=== PATIENT | female | born 1965 | race Caucasian/White ===

== ENCOUNTER 2017-02-19 15:04 | Inpatient (IN) ==
[2017-02-19 15:53] LABS: MANUAL DIFF NEEDED? NO
[2017-02-19 15:56] LABS: BASO% 0.4 % (0.0-0.8); EOS# 0.23 X1000 (0.0-0.7); HEMOGLOBIN 14.2 g/dL (12.0-16.0); LYMPH# 1.81 X1000 (1.2-3.4); LYMPH% 23.8 % (20.5-51.1); MCH 30.5 PG (27-31); MCHC 35.5 g/dL (33-37); MONO# 0.56 X1000 (0.11-0.59); MONO% 7.3 % (1.7-9.3); MPV 10.1 FL (7.4-10.4); NEUT% 65.5 % (42.2-75.2); PLT 240 X1000 (130-400); RBC 4.65 XMIL (4.2-5.4)
--- NOTE | 2017-02-19 16:02 | Diag Imaging Result Doc PS360 ---
EXAM: CHEST-2 VIEWS INDICATION: CP TECHNIQUE: 2 views COMPARISON: 11/26/2016 FINDINGS: The lungs are grossly clear. There is no discrete pleural fluid collection or pneumothorax. The cardiomediastinal silhouette and central vasculature are grossly unremarkable. IMPRESSION: No evidence of acute pathology by plain radiograph. Electronically signed by Jose Samuel 02/19/2017 3:59 PM
[2017-02-19 16:05] LABS: INR 1.01; PROTIME 10.6 Seconds (9.2-11.7); PTT 25.9 Seconds (22.0-36.0)
[2017-02-19 16:07] LABS: AGAP 14; ALBUMIN 4.4 g/dL (3.5-5.0); ALKALINE PHOSPHATASE 75 U/L (32-104); BUN 8 mg/dL (8-22); CALCIUM 9.1 mg/dL (8.8-10.2); CHLORIDE 103 mmol/L (98-107); CK PROFILE 150 U/L (24-173); COSMO 281; GOT 17 U/L (10-30); GPT 24 U/L (10-36); POTASSIUM 3.7 mmol/L (3.5-5.1); SODIUM 141 mmol/L (136-145); TCO2 24 mmol/L (25-35); TOTAL BILIRUBIN 0.52 mg/dL (0.20-1.00); TOTAL PROTEIN 7.3 g/dL (6.3-8.3)
--- NOTE | 2017-02-19 18:47 | PROVIDER DOCUMENTATION ---
HPI-Chest Pain - General Chief Complaint: Chest Pain Stated Complaint: CP/ELEVATED BP Time Seen by Provider: 02/19/17 18:39 Source: patient Allergies/Adverse Reactions: Patient Allergies Allergy/AdvReac Type Severity Reaction Status Date / Time No Known Allergies Allergy Verified 11/26/16 20:11 Home Medications: Home Medication List Medication Instructions Recorded Confirmed Last Taken Type Metformin E.r. [Glucophage Xr] 500 mg PO HS 03/23/16 11/26/16 11/25/16 22:30 History Citalopram [Celexa] 20 mg PO HS 07/14/16 11/26/16 11/25/16 22:30 History Diphenoxylate/Atropine [Lomotil] 1 each PO 4XDAY PRN PRN #12 tablet 08/04/1611/26/16 14:00 Rx Albuterol [Albuterol Neb] 2.5 mg INH [id number] 11/26/16 11/26/16 11/26/16 14:00 History Budesonide/Formoterol Fumarate 2 puff INH BID 11/26/16 11/26/16 11/26/16 14:00 History [Symbicort 160-4.5 Mcg Inhaler] Cyclobenzaprine [Flexeril] 10 mg PO TID 11/26/16 11/26/16 11/26/16 14:00 History Naproxen 500 mg PO BID PRN PRN #20 tablet 11/26/16 Unknown Rx - History of Present Illness-CP Nature of Presenting Problem: 51 y/o WF presents to the ED with 1 day hx of general weakness, CP, RUE tingling. Pt states that she took nitro x 2 and CP resolved. Also states that she had a SIGALA prior to the CP starting and that has resolved. States hx of heart blockage, but Dr. Alaniz wanted to try her on medication prior to any surgical intervention x 2 months. Denies any other sxs at this time. Review of Systems - Adult - REVIEW OF SYSTEMS - ADULT Constitutional: reports: no symptoms reported. denies: chills, fever Eyes: reports: no symptoms reported. denies: blurred vision, double vision Ears, Nose, Mouth & Throat: reports: no symptoms reported. denies: ear pain, nose pain Cardiovascular: reports: see HPI, chest pain. denies: palpitations Respiratory: reports: no symptoms reported. denies: cough, shortness of breath Gastrointestinal: reports: no symptoms reported. denies: abdominal pain, nausea , vomiting Genitourinary: reports: no symptoms reported. denies: dysuria, frequency Musculoskeletal: reports: no symptoms reported. denies: joint pain, joint swelling Integumentary: reports: no symptoms reported. denies: nail changes, rash Neurological: reports: see HPI, headache/migraines, numbness. denies: paresthesia Psychiatric: reports: no symptoms reported Endocrine: reports: no symptoms reported. denies: cold intolerance, heat intolerance Hematologic/Lymphatic: reports: no symptoms reported. denies: easy bruising, prolonged bleeding Allergic/Immunologic: reports: no symptoms reported All Other Systems: Reviewed and Negative Past History - Adult - PAST MEDICAL HISTORY-ADULT Review of Records: reports: Nursing Assessment Review, Medications Reviewed Major Childhood Illnesses: reports: denies history Cardiovascular: reports: CAD Respiratory: reports: asthma, COPD Gastrointestinal: reports: denies history Obstetrical/Gynecological: reports: denies history Genitourinary: reports: other (awaiting workup for abnormal uterine/cervical findings) Musculoskeletal: reports: arthritis, intervertebral disc disease Neurological: reports: denies history Psychiatric: reports: bipolar Endocrine/Immune: reports: denies history, Diabetes Other Conditions: reports: blindness - PRIOR SURGERIES/PROCEDURES Surgical/Procedure History: reports: cholecystectomy, BTL, other (artificial R eye) - IMMUNIZATION STATUS Childhood Immunizations: See Nurse Assessment Flu Vaccine: See Nurse Assessment - FAMILY HISTORY Family History: reviewed, not pertinent - SOCIAL HISTORY Smoking: denies, secondhand Living Situation: family Physical Exam-General - PHYSICAL EXAM-ADULT Initial Vital Signs Reviewed: Yes - CONSTITUTIONAL General Appearance: alert, mild distress - EYES Eyes: PERRL/EOMI (L eye), other (artificial R eye in place). negative: EOM palsy - HEAD, EARS, NOSE, MOUTH & THROAT HENMT: normocephalic/atraumatic, moist mucous membranes - NECK Neck: full range of motion, supple, normal inspection - RESPIRATORY Respiratory: lungs clear, normal breath sounds. negative: crackles, rales, rhonchi, stridor, wheezing - CARDIOVASCULAR Cardiovascular: regular rate, rhythm. negative: bradycardia, tachycardia - GASTROINTESTINAL (ABDOMEN) Abdominal Exam: normal bowel sounds, non tender, soft. negative: distended, guarding, rigid - MUSCULOSKELETAL Back Exam: normal inspection Extremity: normal gait - SKIN Integumentary: normal color, normal turgor, warm/dry - NEUROLOGIC Neurologic: negative: aphasia - PSYCHIATRIC Psych/Mental Status: normal mood/affect Progress - PLAN OF CARE/RESULTS Progress/Plan/Lab Results: Vital Signs - 8 hr 02/19/17 15:25 02/19/17 18:57 Temperature 98.5 F Pulse Rate 75 63 Respiratory Rate 20 14 Blood Pressure 127/70 117/77 O2 Sat by Pulse Oximetry 99 99 Laboratory Results - last 24 hr 02/19/17 02/19/17 02/19/17 15:34 15:34 15:34 WBC 7.62 RBC 4.65 Hgb 14.2 Hct 40.0 MCV 86.0 MCH 30.5 MCHC 35.5 RDW Std Deviation 12.8 Plt Count 240 MPV 10.1 Immature Gran % (Auto) 0.0 Neut % (Auto) 65.5 Lymph % (Auto) 23.8 Newberry % (Auto) 7.3 Eos % (Auto) 3.0 Baso % (Auto) 0.4 Immature Gran # (Auto) 0.00 Neut # (Auto) 4.99 Lymph # (Auto) 1.81 Newberry # (Auto) 0.56 Eos # (Auto) 0.23 Baso # (Auto) 0.03 PT INR PTT (Actin FS) D-Dimer 0.23 Sodium 141 Potassium 3.7 Chloride 103 Carbon Dioxide 24 L Anion Gap 14 BUN 8 Creatinine 0.8 Estimated GFR/1.73 m2 > 60 BUN/Creatinine Ratio 10 Glucose 128 H Calculated Osmolality 281 Calcium 9.1 Magnesium 2.0 Total Bilirubin 0.52 AST 17 ALT 24 Alkaline Phosphatase 75 Creatine Kinase 150 Troponin T Wva-B-Remomtukauz Pept Total Protein 7.3 Albumin 4.4 Globulin 2.9 Albumin/Globulin Ratio 1.5 02/19/17 02/19/17 02/19/17 15:34 15:34 15:34 WBC RBC Hgb Hct MCV MCH MCHC RDW Std Deviation Plt Count MPV Immature Gran % (Auto) Neut % (Auto) Lymph % (Auto) Newberry % (Auto) Eos % (Auto) Baso % (Auto) Immature Gran # (Auto) Neut # (Auto) Lymph # (Auto) [place]berry # (Auto) Eos # (Auto) Baso # (Auto) PT 10.6 INR 1.01 PTT (Actin FS) 25.9 D-Dimer Sodium Potassium Chloride Carbon Dioxide Anion Gap BUN Creatinine Estimated GFR/1.73 m2 BUN/Creatinine Ratio Glucose Calculated Osmolality Calcium Magnesium Total Bilirubin AST ALT Alkaline Phosphatase Creatine Kinase Troponin T < 0.010 Muy-S-Nqepgliqryr Pept 32 Total Protein Albumin Globulin Albumin/Globulin Ratio 02/19/17 02/19/17 19:00 19:00 WBC RBC Hgb Hct MCV MCH MCHC RDW Std Deviation Plt Count MPV Immature Gran % (Auto) Neut % (Auto) Lymph % (Auto) Newberry % (Auto) Eos % (Auto) Baso % (Auto) Immature Gran # (Auto) Neut # (Auto) Lymph # (Auto) [place]berry # (Auto) Eos # (Auto) Baso # (Auto) PT INR PTT (Actin FS) D-Dimer Sodium Potassium Chloride Carbon Dioxide Anion Gap BUN Creatinine Estimated GFR/1.73 m2 BUN/Creatinine Ratio Glucose Calculated Osmolality Calcium Magnesium Total Bilirubin AST ALT Alkaline Phosphatase Creatine Kinase 141 Troponin T < 0.010 Fow-K-Rvgvrtsdkyt Pept Total Protein Albumin Globulin Albumin/Globulin Ratio Orders Category Date Time Status Cardiac Monitoring DIRECTED Care 02/19/17 15:30 Active Saline Loc NOW Care 02/19/17 15:30 Active CHEST-2 VIEWS [RAD] Stat Exams 02/19/17 15:30 Completed CBC WITH ELECTRONIC DIFF [HEME] Stat Lab 02/19/17 15:34 Completed CK PROFILE [SP CHEM] Stat Lab 02/19/17 15:34 Completed CK PROFILE [SP CHEM] Stat Lab 02/19/17 19:00 Completed COMPREHENSIVE METABOLIC PANEL [CHEM] Stat Lab 02/19/17 15:34 Completed D-DIMER [CHEM] Stat Lab 02/19/17 15:34 Completed MAGNESIUM [CHEM] Stat Lab 02/19/17 15:34 Completed PRO B-NATRIURETIC PEPTIDE Stat Lab 02/19/17 15:34 Completed PROTIME WITH INR [COAG] Stat Lab 02/19/17 15:34 Completed PTT [COAG] Stat Lab 02/19/17 15:34 Completed TROPONIN T Stat Lab 02/19/17 15:34 Completed TROPONIN T Stat Lab 02/19/17 19:00 Completed EKG [EKG] Stat Ther 02/19/17 15:30 Ordered EKG [EKG] Stat Ther 02/19/17 18:40 Ordered Discussed pt with Dr. Pepper and he agreed with cardiology consult. Discussed admission with pt. Result Diagrams: 02/19/17 15:34 02/19/17 15:34 - XRAY 1 XRAY Study: Chest Impression: See EMR Report (No evidence of acute pathology by plain radiograph, per Dr. Samuel) - CONSULTS/PCP/HOSPITALIST Notification #1 *Consult/PCP/Hospitalist*: Dr. Anna Keller Discussed: 20:32 Reason/Comments: CP, hx of abnormal NM scan in December 2016 Consult Disposition: Admit (for observation and consult with cardiology. NPO s/ p midnight for cath. Will have Dr. Quintero consult tomorrow.) #2 Consult: Dr. Jean Pierre Keller Discussed: 20:42 Reason/Comments: CP, hx of abnormal NM scan in December 2016, admit per Dr. Castillo Consult Disposition: Admit Departure - Departure Date of Disposition Decision: 02/19/17 Time of Disposition Decision: 20:35 DIAGNOSIS: Chest pain, atypical, Radiculopathy of arm Disposition: ADMITTED INPATIENT 09 Certified Medical Emergency: Emergent Condition: Stable Referrals and Follow-Ups: YEIMY MOULTON [Primary Care Provider] - - Critical Care Note This patient required my direct & personal management of CC.: No Attestation - Physician/ AUGUST Attestation Patient care was provided by Advanced Practice Provider:: Yes Advanced Practice Provider:: Dawna Falk Advanced Practice Provider documentation review:: The Mid-level provider documentation, treatment plan and medical decision making was reviewed by the physician who agrees with all treatment and medical decision making by the P.
[2017-02-19] MEDS ORDERED: ZOFRAN IV PRN (22:25)
[2017-02-19] MEDS ORDERED: NITROGLYCERIN SL PRN (22:25)
[2017-02-19] MEDS: TYLENOL PO PRN (22:50)
--- NOTE | 2017-02-19 23:14 | HISTORY AND PHYSICAL ---
CHIEF COMPLAINT: Chest pain. PRIMARY CARE PHYSICIAN: Dr. Herbert. HISTORY OF PRESENTING ILLNESS: A 51-year-old female with a history of COPD, diabetes mellitus type 2, hypertension, had presented to the emergency department with complaint of chest pain that started earlier today. She described it as pressure-like radiating to her right arm. She states that she took some nitroglycerin and it did help relieve some of the pain. She was evaluated in the ER, she continued to have chest discomfort and due to her presenting symptoms, it was thought that she would need hospitalization for further management. At the time of my examination, she had denied any headache, fever, chills, nausea, vomiting, diarrhea, hemoptysis, melena, weight changes, but complained of chest discomfort. PAST MEDICAL HISTORY: Includes COPD, diabetes mellitus type 2, chronic back pain, hypertension. PAST SURGICAL HISTORY: Cholecystectomy, right eye prosthesis. ALLERGIES: No known drug allergies. CURRENT MEDICATIONS: Listed in MAR. SOCIAL HISTORY: She denies any history of smoking, alcohol or illicit drug use. FAMILY HISTORY: Positive for coronary disease father. REVIEW OF SYSTEMS: Twelve point review of systems is as in HPI. Other systems negative. PHYSICAL EXAMINATION: GENERAL: Cooperative, friendly female. She is resting comfortably now. VITAL SIGNS: Temperature 98.5 degrees, pulse 75, respirations 20, blood pressure 127/70, she is saturating 99% on room air. HEENT: Atraumatic, normocephalic. Extraocular movements intact. There is a right eye prosthesis. NECK: No masses. CHEST: Clear to auscultation. CARDIOVASCULAR: Regular rate and rhythm. ABDOMEN: Soft, nontender. Positive bowel sounds. EXTREMITIES: No edema. NEURO: She is awake, alert, oriented x3. : No bladder distention. SKIN: Warm. LABORATORIES AND STUDIES: Sodium 141, potassium 3.7, chloride 103, CO2 24, BUN is 8, creatinine 0.8, glucose is 128. WBC 7.62, hemoglobin 14.2, hematocrit 40.0, platelets 240,000. Troponin 0.010. ASSESSMENT: A 51-year-old female with a history of diabetes mellitus type 2, hypertension, chronic obstructive pulmonary disease, had presented to emergency department 1-day history of having chest pain. The patient apparently had a positive stress test about several months ago and was put on a trial of medications. However she will need admission for further cardiac evaluation. 1. Chest pain. 2. Diabetes mellitus type 2. 3. Hypertension. PLAN: 1. We will admit patient to medical floor with telemetry. 2. Continue with cardiac workup. Check EKG, serial cardiac enzymes. Have patient continue on aspirin. Will use nitroglycerin p.r.n. chest pain. 3. We will consult instructor physical education. 4. Monitor blood glucose and put patient on sliding scale insulin regimen. 5. We will monitor blood pressure. Resume antihypertensive agents. 6. Put patient on DVT prophylaxis with SCDs. 7. We will continue to follow and reassess. cc: Bethel Greenfield MD
--- NOTE | 2017-02-20 06:15 | EKG Report ---
Test Performed on : 02/19/2017 3:30:39 PM Test Reason : CP Blood Pressure : / mmHG Vent. Rate : 063 BPM Atrial Rate : 063 BPM P-R Int : 162 ms QRS Dur : 098 ms QT Int : 420 ms P-R-T Axes : 008 014 023 degrees QTc Int : 429 ms Normal sinus rhythm. Cannot rule out Anterior infarct , age undetermined Abnormal ECG When compared with ECG of 26-NOV-2016 22:34, No significant change was found Unconfirmed Result
[2017-02-20] MEDS: HUMULIN R SUBQ SCH ×2 (06:42→11:41)
[2017-02-20 06:58] LABS: MANUAL DIFF NEEDED? NO
[2017-02-20 07:03] LABS: BASO% 0.4 % (0.0-0.8); EOS# 0.21 X1000 (0.0-0.7); EOS% 2.7 % (0.0-10.0); HEMOGLOBIN 14.4 g/dL (12.0-16.0); IMM GRAN# 0.03 X1000 (0.0-0.04); IMM GRAN% 0.4 % (0.0-0.5); LYMPH# 2.41 X1000 (1.2-3.4); LYMPH% 30.8 % (20.5-51.1); MCH 30.6 PG (27-31); MCHC 35.1 g/dL (33-37); MONO# 0.68 X1000 (0.11-0.59); MONO% 8.7 % (1.7-9.3); PLT 223 X1000 (130-400); RBC 4.71 XMIL (4.2-5.4)
[2017-02-20 07:27] LABS: HDL 55 mg/dL (45-65); LDL 60 mg/dL; TRIGLYCERIDES 84 mg/dL (35-135); VLDL 17 mg/dL
[2017-02-20] MEDS ORDERED: ASPIRIN PO SCH (09:00)
--- NOTE | 2017-02-20 10:54 | CONSULTATION ---
DATE OF CONSULTATION: 02/20/2017 CHIEF COMPLAINT: Chest pain. HISTORY OF PRESENT ILLNESS: The patient is a pleasant 51-year-old female who is known to me. I saw her at the office last time on 12/29/2016. Since then, she had been doing relatively well up until the day prior to admission when she started having recurrent chest pain, substernal, similar to the pain that she had reported on previous admission; however, this time the pattern was recurrent, more persistent, more intense. The patient got worried and decided to come for medical evaluation to the ER. She was seen on 02/19/2017 at about 3:30 p.m. They did an EKG that showed sinus rhythm with no acute ST-T abnormalities. They have drawn several sets of cardiac enzymes, 4, and all of them are negative. ProBNP level is normal. The patient is still having some mild discomfort in the chest. PAST MEDICAL HISTORY: Positive for mild degree of coronary artery disease. Back in 2009, a heart catheterization revealed 30% stenosis of the proximal LAD. We did a followup nuclear stress test on 12/23/2016 that showed partially reversible anteroapical defect and basal septal defect focal. Because the patient was not on any appropriate medical therapy, we went ahead and got her started on Cardizem, aspirin and Pravachol. The patient had been diagnosed with diabetes mellitus. She has history of degenerative joint disease including spine/back pains. She has had some hyperlipidemia in the past. 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 SOCIAL HISTORY: She is a . She has 3 grownup children. The patient presently is not a smoker. FAMILY HISTORY: Father has had bypass. Brother and sister have had coronary bypass. REVIEW OF SYSTEMS: Other than the recurrent episode of chest pain is really noncontributory. She does have some fatigue. She has had some exertional dyspnea, occasional numbness in the hands. Some loss of appetite. She has no thyroid issues. No additional musculoskeletal problems other than low back pain. HOME MEDICATIONS: At the time of this admission included pravastatin 20 mg daily, metformin 500 at bedtime, meloxicam 7.5 daily, diltiazem HCl 180 daily, Celexa 20 mg daily, albuterol inhaler and Symbicort daily. PHYSICAL EXAMINATION: Blood pressure is 111/66, temperature 97.4, pulse 54, respirations 18. She is awake, alert and oriented, in no distress. HEENT: Unremarkable. Chest: Clear to auscultation and percussion. Heart sounds are regular and rhythmic without gallop or murmur. Abdomen: Nontender, soft. No masses. No hepatomegaly. Extremities: Good pulses. No edema. Neurologic: Moves all 4 extremities and follows commands. DIAGNOSTIC DATA: Normal white count, hemoglobin, RDW and MCV. Cholesterol is 132, LDL is 60, HDL is 55, triglycerides 84. PT, PTT and D-dimer are normal. ProBNP is normal. Sodium, potassium, BUN and creatinine all normal. IMPRESSION: 1. The patient is presenting with recurrent chest pain with a recently performed stress test that is abnormal and a history of mild coronary heart disease in the past. 2. Diabetes mellitus. 3. Chronic obstructive pulmonary disease. 4. Spine arthritis. RECOMMENDATIONS: Because of the changes in pattern and the increasing chest discomfort, I would recommend at this time to pursue diagnostic catheterization. Her presentation is unstable. We will go ahead and put her on Lovenox, and we will proceed with left heart catheterization today. The benefits, risks and complications were explained to her in detail. She understood and requested to proceed. Further advice will depend on the results of the heart catheterization. cc: Donnell Quintero MD
[2017-02-20] MEDS: CARDIZEM CD PO SCH ×2 (11:41→21:01)
[2017-02-20] MEDS: PRILOSEC PO SCH ×2 (11:41→21:00)
[2017-02-20] MEDS ORDERED: HEPARIN 1000 UNITS/NS 2,000 UNIT/1,000 ML IV.SOLN ONE (13:28)
[2017-02-20] MEDS ORDERED: VERSED ONE (13:33)
[2017-02-20] MEDS ORDERED: DEMEROL ONE (13:34)
[2017-02-20] MEDS ORDERED: CLAVE PUMP SET NO FILTER 12260 ONE (13:42)
[2017-02-20] MEDS ORDERED: NS 1,000 ML ONE (13:43)
[2017-02-20] MEDS: LOVENOX SUBQ SCH ×2 (14:42→20:59)
--- NOTE | 2017-02-20 15:06 | CARDIAC CATH REPORT ---
DATE: 02/20/2017 INDICATION: This is a 51-year-old female with recurrent chest pains, abnormal stress test in the recent past. PROCEDURES PERFORMED: 1. Left heart catheterization. 2. Selective coronary arteriography. 3. Left ventriculography. DESCRIPTION OF PROCEDURE: The patient came into the cardiac custodial laborer in the fasting state. The right groin was prepped and draped in sterile fashion and anesthetized with lidocaine 1%. A 6- Citizen [place] sheath was inserted into the right femoral artery by following the modified Seldinger technique. Thereafter using 6-[place]izen [place] left Asad 4 and right Asad 4, the left and right coronary arteries were selectively opacified in several projections. Thereafter using the right Asad catheter, the aortic valve was negotiated. Left ventricular pressure was measured. Left ventriculogram was performed in the 60 degree TERRANCE projection and 30 degree BAH projection by hand injection. At the conclusion of the procedure, the femoral artery was opacified; however, the stick had been made just at the bifurcation of the main femoral vessel, and therefore Angio-Seal device was not deployed. The patient tolerated the procedure well. Hemostasis was accomplished by hand compression. SUMMARY OF HEMODYNAMIC FINDINGS: Central aortic pressure is 121/69. Left ventricular pressure is 108/7, post LV gram 99/7. Final central aortic pressure is 111/71. Nitroglycerin was given during the procedure to maximize the caliber of the coronary arteries. SUMMARY OF ANGIOGRAPHIC FINDINGS: 1. Left main coronary artery: This vessel is short and is angiographically normal. It divides into the LAD and circumflex. 2. Left anterior descending coronary artery: The vessel has normal proximal caliber. It shows the presence of a 20% to 30% proximally just at the point of origin of the first diagonal branch. The LAD thereafter tapers down to a small caliber vessel as it reaches the apex of the left ventricle. No critical lesions are noted along the course of the LAD. 3. Circumflex: The circumflex is a large, nondominant vessel. It gives rise to tiny lateral branches and then a very good size obtuse marginal branch and a terminal AV branch that is free of any obstruction. 4. Right coronary artery: The right coronary artery is a dominant vessel with a proximal caliber of about 3 mm. It gives rise to right atrial and acute marginal branches. Distally it gives rise to a small posterior descending branch and a small AV branch. No critical lesions are noted along the course of the right coronary artery. LEFT VENTRICULOGRAM: Left ventriculogram in the 30 degree BAH projection and 60 degree TERRANCE projection reveals normal left ventricular systolic function ejection fraction of 60% to 65% with no mitral regurgitation. No wall motion abnormality. OPACIFICATION OF RIGHT FEMORAL ARTERY: The right femoral artery appears to be anatomically normal. The bifurcation is relatively high, and therefore Angio-Seal device was not deployed. CONCLUSIONS: 1. Very mild coronary artery disease in the order of 20% to 30% involving the proximal LAD. The left main, the circumflex and the right coronary artery are normal. 2. Excellent left ventricular systolic function. 3. Normal left ventricular hemodynamics. 4. No mitral regurgitation. No aortic stenosis. RECOMMENDATIONS: The patient will be treated for gastroesophageal disease. Her pain is noncardiac. Further advice will be forthcoming. cc: Donnell Quintero MD
[2017-02-20] MEDS ORDERED: NS 1,000 ML IV SCH (17:00)
--- NOTE | 2017-02-20 17:26 | PROGRESS NOTE ---
DATE: 02/20/2017 SUBJECTIVE: This is a 51-year-old who was admitted on 02/19/2017. Yesterday she was having chest pain at Dr. Herbert's. She has a history of COPD, diabetes mellitus type 2, hypertension. Presented to the emergency room with complaints of chest pain that started early in the day. Described it as pressure-like, radiating into right arm. She states that she took some nitroglycerin and it did help and gave her some relief of pain. She was evaluated in the ER and continued to have chest pain and discomfort. Due to presenting symptoms, put her in the hospital. PAST MEDICAL HISTORY: COPD. Diabetes mellitus type 2, chronic back pain. Hypertension. SURGICAL HISTORY: Status post cholecystectomy. Right eye prosthesis. Dr. Quintero evaluated from Cardiology. She has had a cath before and there was some mild coronary artery disease at that time. Doyline she needed a repeat heart catheterization. Left heart catheterization was done. Very mild coronary artery disease on the order of 20-30% involving proximal LAD. The left main, circumflex, right coronary artery are normal. Excellent left ventricular systolic function. Normal left ventricular hemodynamics. No mitral regurgitation or aortic stenosis. Patient has remained hemodynamically stable. OBJECTIVE: Vital signs: Blood pressure is ranging between 105-123, and 62-77. Lungs: Clear in all lung lui. Cardiovascular: Regular rhythm and rate without murmur or S3. Abdomen: Soft. Skin: Warm and dry. PLAN: 1. Hopefully to discharge her tomorrow. It does not appear that her chest pain is true angina. 2. Diabetes mellitus type 2. Sugars under good control. 3. Hypertension. Blood pressure under good control. I have reviewed her orders. I do not know if I see any change right now. cc: Tanvir Carrillo MD
[2017-02-20] MEDS: TYLENOL PO PRN (17:39)
[2017-02-20] MEDS ORDERED: CELEXA PO SCH (21:00)
[2017-02-20] MEDS ORDERED: PRAVACHOL PO SCH (21:00)
[2017-02-20] MEDS: CARAFATE PO SCH (21:04)
[2017-02-21] MEDS: HUMULIN R SUBQ SCH ×5 (00:07→16:59)
[2017-02-21] MEDS: LOVENOX SUBQ SCH (00:08)
[2017-02-21] MEDS: CARAFATE PO SCH ×3 (00:09→11:44)
[2017-02-21] MEDS: PRILOSEC PO SCH ×3 (05:42→09:49)
--- NOTE | 2017-02-21 09:12 | PROGRESS NOTE ---
DATE: 02/21/2017 CHIEF COMPLAINT: Chest pain. SUBJECTIVE: Mrs. Holder is feeling better. She has not had any more chest pains. OBJECTIVE: Vital signs: Her blood pressure this morning is 112/53, temperature 97.5, pulse 57, respirations 18. General: She is awake, alert, oriented, in no distress. HEENT: Unremarkable. Chest: Clear to auscultation and percussion. Cardiac: Heart sounds regular and rhythmic, no gallop or murmur. Right groin shows no hematoma, no swelling. IMPRESSION: Patient who presented with chest pains that were somewhat atypical. However, because of abnormal stress test, myocardial perfusion study done 2 months ago, we recommended a heart catheterization that was done yesterday and showed only minimal coronary artery disease very similar to previous heart cath from 7 years ago. RECOMMENDATION: At this point in time, there is no indication of progression of coronary heart disease. Her lipid panel from February 19 shows a cholesterol of 132, LDL of 60, HDL of 55, triglycerides 34. That is optimally controlled. At this point in time, I would suggest to treat her as a case of gastroesophagitis, put her on whole aspirin, and I would be more than happy to see her back in 6 months. However, cardiac-colbert, I do not anticipate any further interventions. Thank you again for the opportunity to participate in her evaluation. Best regards. cc: Donnell Quintero MD
[2017-02-21] MEDS: CARDIZEM CD PO SCH (09:48)
--- NOTE | 2017-02-21 11:26 | EKG Report ---
Test Performed on : 02/21/2017 10:42:01 AM Test Reason : Post Cath Protocol Blood Pressure : / mmHG Vent. Rate : 058 BPM Atrial Rate : 058 BPM P-R Int : 186 ms QRS Dur : 100 ms QT Int : 408 ms P-R-T Axes : 020 020 021 degrees QTc Int : 400 ms Sinus bradycardia. Otherwise normal ECG When compared with ECG of 19-FEB-2017 20:51, (Unconfirmed) No significant change was found Confirmed by Damion FLETCHER, Domingo Chiu ([id number]) on 02/22/2017 2:55:52 PM
[2017-02-21] MEDS: TYLENOL PO PRN (14:58)
[2017-02-21 16:34] VITALS: BP 123/62
--- NOTE | 2017-02-21 17:04 | DISCHARGE SUMMARY ---
ADMISSION DATE: 02/19/2017 DISCHARGE DATE: 02/21/2017 HISTORY AND HOSPITAL COURSE: She presented with chest pain. She is a patient of Dr. Herbert. A 51-year-old with history of COPD, diabetes mellitus type 2. Presented to the emergency room with complaint of chest pain that started earlier in the day. Describes pressure-like radiating down the right arm. States that she took some nitroglycerin and it did help and alleviate some of the pain. In the ER, continued to have chest pain and so was admitted. Cardiology was consulted. Cardiac enzymes were unremarkable, but she does have a history of known coronary artery disease. Dr. Quintero had seen her last in the office on 12/29/2016 and she had been doing relatively well. The patient has a history of coronary artery disease back in 2009. Heart catheterization revealed a 30% stenosis of the proximal LAD. Did a follow up nuclear stress test on 12/23/2016. Showed partial reversible anterior apical defect, basal septal defect. So she underwent heart catheterization. Did not find any progression of coronary artery disease and did not see any lesions that would account for her pain, so felt she could go home. There is no indication for progression of coronary artery disease. Lipid panel from February 19 showed cholesterol 132, total LDL was 60, HDL was 55. Going to put her on whole aspirin. See her back in 6 months. I do not anticipate any further interventions. DISCHARGE MEDICATIONS: She will be on Celexa 20 mg at bedtime. Cardizem CD 180 mg daily. Prilosec 20 mg. She will take b.i.d. for 4 weeks. Pravachol 20 mg a day and Carafate 1 g p.o. q.6 hours for a whole month. I am going to treat her for esophageal irritation, gastroesophageal reflux and gastritis. cc: Tanvir Carrillo MD
== END 2017-02-21 18:16 | disposition home or self-care (01) ==
LOC: ED 15:04 → SUATTDRO 21:46 → 3N 21:46
PROVIDERS: ATTEND Emergency Medicine